=== PATIENT | female | born 1995 | race Caucasian/White ===

== ENCOUNTER 2022-04-02 04:12 | Inpatient (IN) | payer OTHER ==
[~2022-04-02] VITALS: Ht 162.6 cm; Wt 60.3 kg
[2022-04-02] MEDS ORDERED: CARBOPROST 250 MCG/ML AMP IM PRN (04:55)
[2022-04-02] MEDS ORDERED: ONDANSETRON 4 MG/2 ML VIAL IVP PRN (04:55)
[2022-04-02] MEDS ORDERED: LACTATED RINGERS 1,000 ML IV SCH (04:55)
[2022-04-02] MEDS ORDERED: MORPHINE SULFATE 5 MG/ML VIAL IVP PRN (04:55)
[2022-04-02] MEDS ORDERED: METHYLERGONOVINE 0.2 MG/ML AMP IM PRN ×4 (04:55→12:10)
[2022-04-02] MEDS ORDERED: PRETAB PO (04:58)
[2022-04-02 05:27] VITALS: BP 123/72
[2022-04-02 06:24] LABS: BASOPHILS % (AUTO) 0.5 % (0.0-2.0); EOSINOPHILS # (AUTO) 0.1 K/uL (0-0.4); EOSINOPHILS % (AUTO) 0.9 % (0.0-4.0); HEMATOCRIT 35.3 % (36-48); HEMOGLOBIN 11.8 g/dL (12.0-16.0); LYMPHOCYTES # (AUTO) 1.6 K/uL (2.5-16.5); LYMPHOCYTES % (AUTO) 24.7 % (20.5-51.1); MEAN CORPUSCULAR HEMOGLOBIN 29 pg (27-31); MEAN CORPUSCULAR HGB CONC 33 g/dL (33-37); MONOCYTES # (AUTO) 0.5 K/uL (0.8-1.0); MONOCYTES % (AUTO) 8.4 % (1.7-9.3); NEUTROPHILS # (AUTO) 4.2 K/uL (1.8-7.7); NEUTROPHILS % (AUTO) 65.5 % (42.2-75.2); PLATELET COUNT (AUTO) 134 K/uL (140-450); RED BLOOD CELL COUNT(AUTO) 4.11 MIL/uL (4.20-5.40); RED CELL DISTRIBUTION WIDTH 13.6 % (11.6-13.7); WHITE BLOOD COUNT (AUTO) 6.4 K/uL (4.8-10.8)
[2022-04-02 06:59] LABS: POTASSIUM 3.9 mmol/L (3.5-5.1)
[2022-04-02 07:00] LABS: CARBON DIOXIDE 24.9 mmol/L (21-32); CREATININE 0.7 mg/dL (0.6-1.3)
[2022-04-02 07:01] LABS: ALBUMIN 2.4 g/dL (3.4-5.0); TOTAL BILIRUBIN 0.2 mg/dL (0.0-1.0)
[2022-04-02 07:43] LABS: PROTHROMBIN TIME 9.3 secs (10.8-13.4)
[2022-04-02] MEDS ORDERED: OXYTOCIN 20 UNITS/LR PREMIX 1,000 ML IV ONE (07:45)
[2022-04-02] MEDS ORDERED: MORPHINE SULFATE 10 MG/ML VIAL ONE (09:13)
[2022-04-02] MEDS ORDERED: OXYTOCIN 20 UNITS in LACTATED RINGERS 1,000 ML IV SCH (09:20)
[2022-04-02] MEDS ORDERED: LIDOCAINE 1% 500 MG/50 ML VIAL ONE (10:08)
--- NOTE | 2022-04-02 10:30 | NUR ---
PATIENT HAS BEEN SCREENED AND CATEGORIZED LOW NUTRITION RISK. PATIENT WILL BE SEEN WITHIN 7 DAYS OF ADMISSION. 04/09/[address]
[2022-04-02] MEDS ORDERED: MEASLES, MUMPS, AND RUBELLA 1 VIAL SQVAC ONE (12:10)
[2022-04-02] MEDS ORDERED: IBUPROFEN 800 MG TAB PO PRN ×2 (12:10)
[2022-04-02] MEDS ORDERED: METHYLERGONOVINE 0.2 MG TAB PO PRN ×3 (12:10)
[2022-04-02] MEDS ORDERED: OXYTOCIN 10 UNITS/ML VIAL IM PRN ×3 (12:10)
[2022-04-02] MEDS ORDERED: BENZOCAINE/MENTHOL 20%-0.5% 60 GM CAN TP PRN ×3 (12:10)
[2022-04-02] MEDS ORDERED: MEASLES, MUMPS, AND RUBELLA 1 VIAL SQVAC PRN (12:30)
[2022-04-02] MEDS: IBUPROFEN 800 MG TAB PO PRN (16:45)
[2022-04-03 00:52] LABS: APPEARANCE,URINE CLEAR (CLEAR); BILIRUBIN,URINE NEGATIVE (NEGATIVE); BLOOD, URINE 3+ (NEGATIVE); COLOR,URINE YELLOW (YELLOW); LEUKOCYTE ESTERASE ,URINE NEGATIVE (NEGATIVE); NITRITE, URINE NEGATIVE (NEGATIVE); PH,URINE 6.5 (5.0-9.0); UGLUCOSE NEGATIVE (NEGATIVE)
[2022-04-03 00:59] LABS: RBC,URINE TOO NUMEROUS TO COUN /HPF (0-5); WBC,URINE 0-5 /HPF (0-5)
[2022-04-03 01:00] LABS: BARBITURATE, URINE NEGATIVE ng/ml (NEG <=200); BENZODIAZEPINE, URINE NEGATIVE ng/mL (NEG <=200); CANNABINOID, URINE NEGATIVE ng/mL (NEG <=50); COCAINE, URINE NEGATIVE ng/mL (NEG <=300); OPIATE, URINE POSITIVE ng/mL (NEG <=2000); PHENCYCLIDINE SCREEN,URINE NEGATIVE ng/mL (NEG <=25)
[2022-04-03] MEDS: IBUPROFEN 800 MG TAB PO PRN (01:10)
[2022-04-03] MEDS ORDERED: FLU VACCINE QS2022-23 0.5 ML SYR IMVAC ONE (06:00)
[2022-04-03 08:34] LABS: HEMOGLOBIN 10.7 g/dL (12.0-16.0)
[2022-04-03] MEDS ORDERED: IBUP-2217 PO (18:01)
== END 2022-04-03 18:45 | disposition home or self-care (01) | DRG 560 ==
LOC: MLD 04:12 → MFCC 12:07
PROVIDERS: ADMIT Obstetrics & Gynecology; ATTEND Obstetrics & Gynecology
PROC: 10E0XZZ Delivery of Products of Conception, External Approach (ICD-10-PCS; principal; 2022-04-02)
PROC: 3E0234Z Introduction of Serum, Toxoid and Vaccine into Muscle, Percutaneous Approach (ICD-10-PCS; 2022-04-02)
DX: O80 Encounter for full-term uncomplicated delivery (principal); Z37.0 Single live birth; D62 Acute posthemorrhagic anemia; Z20.822 Contact with and (suspected) exposure to COVID-19; Z3A.39 39 weeks gestation of pregnancy
CPT/HCPCS: 36415; 80053; 80305; 81001; 85018; 85025; 85610; 85730; 86592; 86886; 86900; 86901; 87086; J2001; J2270; J2405; J2590